=== PATIENT | female | born 1965 | race Caucasian/White ===

== ENCOUNTER 2017-12-07 02:17 | Inpatient (IN) | payer OTHER ==
--- NOTE | 2017-12-06 10:25 | History & Physical Pre-Op ---
General Information and HPI History of Present Illness: Patient seeks second opinion regarding repair of her hiatal hernia. Workup performed in [place], imaging and endoscopy notes reviewed. She describes at least 10 year history of GERD controlled with once daily PPI. Over past 4-6 months she c/o worsening postprandial epigastric abdominal and chest pain associated with nausea and vomiting undigested food. This occurs 3-4x/week. Upper GI series shows paraesophageal hernia with partial volvulus. EGD showed the same with inability to traverse the stomach due to partial outlet obstruction. 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 She reports anxiety but reports no depression, no sleep disturbances, feeling safe in relationship, no alcohol abuse, no homicidal thoughts, and no suicidal thoughts. She reports no fatigue, no fever, no night sweats, no significant weight gain, no significant weight loss, and no exercise intolerance. She reports no abnormal moles, no jaundice, no hives, no eczema, and no rashes. She reports no swollen glands and no neck stiffness. She reports no cough, no wheezing, no shortness of breath, and no coughing up blood. She reports no chest pain, no arm pain on exertion, no shortness of breath when walking, no shortness of breath when lying down, no palpitations, and no leg swelling. She reports no incontinence, no difficulty urinating, no hematuria, and no increased frequency. She reports no muscle aches, no muscle weakness, no arthralgias/joint pain, and no back pain. Exam & Diagnostic Data Physical Exam: Patient is a 52-year-old female. Constitutional: General Appearance: healthy-appearing, well-nourished, and well- developed. Level of Distress: no acute distress. Ambulation: ambulating normally. Head: Head: normocephalic and atraumatic. Neck: Neck: supple, trachea midline, no masses, and full range of motion. Thyroid: no enlargement or nodules and non-tender. Lymph Nodes: no cervical LAD, supraclavicular LAD, axillary LAD, or inguinal LAD. Cardiovascular: Heart Auscultation: normal S1 and S2; no murmurs, rubs, or gallops; and regular rate and rhythm. Lungs: Respiratory effort: no dyspnea. Percussion: no dullness, flatness, or hyperresonance. Auscultation: no wheezing, rales/crackles, or rhonchi and breath sounds normal, good air movement, and clear to auscultation. Back: Thoracolumbar Appearance: normal curvature. Abdomen: Inspection and Palpation: no tenderness, guarding, masses, rebound tenderness, or CVA tenderness and soft and non-distended. Bowel Sounds: normal. Liver: non-tender and no hepatomegaly. Spleen: non-tender and no splenomegaly. Hernia: none palpable. Skin: Inspection and palpation: no rash, lesions, ulcer, induration, nodules, jaundice, or abnormal nevi and good turgor. Musculoskeletal:: Extremities: no cyanosis, edema, varicosities, or palpable cord. Motor Strength and Tone: normal tone and motor strength. Joints, Bones, and Muscles: no contractures, malalignment, tenderness, or bony abnormalities and normal movement of all extremities. Psychiatric: Insight: good judgement and insight. Mental Status: normal mood and affect and active and alert. Orientation: to time, place, and person. Memory: recent memory normal and remote memory normal. Assessment/Plan Assessment/Plan: 1. Hiatal hernia with obstruction but no gangrene - Her symptoms are concerning for impending volvulus. Currently symptom-free. Recommend laparoscopic hiatal hernia repair with mesh and Hao fundoplication. Eat small meals until surgery. K44.0: Diaphragmatic hernia with obstruction, without gangrene Discussion Notes Discussed compications of surgery including but not limited to bleeding, infection, bowel injury, pneumothorax, dysphagia and bloating. Discussed the postoperative diet plan and a copy was given to the patient for review. As Ranked By This Provider Problem List: 1. Hiatal hernia
[~2017-12-07] VITALS: Ht 160.8 cm; Wt 88.0 kg
[~2017-12-07 02:17] MED LIST: BACLOFEN10 M1 PO; ESCITALOPRAM OX10 MG PO; IBUPROFEN600 M1 PO; OMEPRAZOLE40 M1 PO
--- NOTE | 2017-12-07 17:11 | Operative Report ---
Operative/Inv Procedure Report Surgery Date: 12/07/17 Name of Procedure: Laparoscopic hiatal hernia repair with mesh and Hao fundoplication Pre-Operative Diagnosis: Hiatal hernia GERD Post-Operative Diagnosis: Same Estimated Blood Loss: scant Surgeon/Spearer: Joe CLEMENS,Manish Dasilva/Jewell NUNES Anesthesia: general endotracheal tube Implants: Chaffee bio a mesh Specimens: Hernia sac Operative Indication: See preoperative H&P Operative/Procedure Note Note: After consent patient is brought to the operating room and laid supine. Gen. anesthesia was obtained and placed in lithotomy position. The abdomen was prepped and draped. The skin in the epigastric region was after local anesthesia and a transverse incision made sharply. We dissected down to the fascia and incised it with Fatoumata's. Stay suture placed and a blunt Smith port placed. Pneumoperitoneum was achieved. Therefore, 5 mm ports were placed in the right upper quadrant and epigastrium and left upper quadrant after local anesthesia instilled and under direct vision and camera. Patient is placed in reverse Trendelenburg. Through the right upper quadrant port site wound, and John retractor was placed and liver edge elevated. Began on the upper right crura and incised the peritoneum with the Sonicision device. We got into a plane around the sac in the mediastinum and carried or dissection up towards the apex and onto the left christiane. We then carried the dissection down to the right christiane and circumferentially encompassed the hiatus. The sac was then circumferentially mobilized out of the mediastinum with blunt and Sonicision dissection. An umbilical tie was placed around the hiatus and tied to itself to aid in retraction. The esophagus was then circumferentially mobilized through the mediastinum until 3-4 cm intra-abdominal esophagus could be obtained. The hernia sac was dissected and removed from the GE junction for better identification of it. The short gastric vessels were then divided with Sonicision to mobilize the fundus. The crural defect was then closed with a combination of interrupted 0 Ethibond sutures. The fundus was then placed posterior and wrapped around anterior. A shoeshine maneuver was performed. 2-0 Vicryl suture was placed on both sides the fundus to keep the plication in place anteriorly.. Second and third suture was placed inferiorly, incorporating the anterior portion esophagus. Finally, Chaffee bio a mesh was placed over the closed crura. Umbilical tape was then removed and passed off the field. The liver edge left full down the John retractor removed. Ports were delivered and passed off the field. The fascia was closed 0 Vicryl suture skin closed with 4- 0 Vicryl. Sterile dressings were applied. Findings: Complete intrathoracic stomach CC: Aleah CLEMENS,Cirilo Alejandre
--- NOTE | 2017-12-07 17:24 | Admission Core Measures ---
Acute Coronary Syndrome (CM) ACS Core Measures Acute Coronary Syndrome Diagnosis No Congestive Heart Failure (NEW) CHF Core Measures Congestive Heart Failure Diagnosis No Cerebrovascular Accident (NEW) CVA Core Measures CVA/TIA Diagnosis No Venous Thromboembolism VTE Core Que (View Protocol) VTE Risk Factors Surgery No Mechanical VTE Prophylaxis d/t N/A MechProphylax Ordered No VTE Pharm Prophylaxis d/t NA PharmProphylax ordered Problem List As ranked by this Provider includes Assessment & Plan 1. Status post Hao fundoplication HOME MEDS Home Med List Escitalopram Oxalate 10 MG TABLET 1 TAB PO DAILY DEPRESSION (Reported) Discontinued Medications Baclofen 10 MG TABLET 1 TAB PO TIDPRN PRN muscle spasm/strain Discontinued reason: Med no longer needed Ibuprofen 600 MG TABLET 1 TAB PO Q6PRN PRN pain Discontinued reason: Med no longer needed Omeprazole 40 MG CAPSULE. 1 CAP PO DAILY GERD (Reported) Discontinued reason: Med no longer needed
[2017-12-07 19:00] VITALS: BP 110/60
[2017-12-07 20:52] VITALS: BP 124/78
[2017-12-07 22:47] VITALS: BP 150/90
[2017-12-08 01:20] VITALS: BP 104/56
[2017-12-08 05:00] VITALS: BP 124/76
--- NOTE | 2017-12-08 08:19 | PN- General Surgery ---
See Addendum Subjective Subjective: Awake, alert Nauseated - has taken zofran and is dry heaving Tolerating liquids overnight but nausea with movement Has not passed flatus Objective Vital Signs and I&Os Vital Signs Date Time Temp Pulse Resp B/P B/P Pulse O2 O2 Flow FiO2 Mean Ox Delivery Rate 12/08 0500 97.9 73 18 124/76 93 Room Air 12/08 0120 98.1 77 18 104/56 92 CPAP 12/08 0000 90 CPAP 12/077 97.7 75 20 150/90 90 CPAP 12/07 2051 98.0 79 20 124/78 92 Nasal 3.0L Cannula 12/07 191 Nasal 3.0L Cannula 12/07 1899 97.5 74 16 110/60 93 Nasal 3.0L Cannula Intake & Output 12/08 1600 12/08 0800 12/08 0000 12/07 1600 12/07 0800 12/07 0000 Intake Total 830 450 Output Total 700 Balance 130 450 Intake, IV 800 400 Intake, Oral 30 50 Number 0 Bowel Movements Output, Urine 700 Patient 194 lb Weight Weight Reported by Patient Measurement Method Physical Exam: afebrile, vss General: alert and oriented times three Chest: clear bilaterally, RRR Abd: softly distended, hypoactive bowel sounds Ext: warm, no edema Wds: dressed, dry Assessment/Plan Assessment/Plan 52yo female pod 1 s/p lap zaid nutrition consult today stage one fundo diet antinausea meds try IV tylenol for pain mgmt - pt not in much pain and narcotics may be increasing nausea ambulate continue IVF for now until po intake increases Core Measures Venous Thromboembolism VTE Risk Factors Surgery No Mechanical VTE Prophylaxis d/t N/A MechProphylax Ordered No VTE Pharm Prophylaxis d/t NA PharmProphylax ordered
--- NOTE | 2017-12-08 08:36 | Patient Discharge Instructions ---
Discharge Instructions General Discharge Information You were seen/treated for: Hiatal hernia You had these procedures: Lap zaid fundoplication, hernia repair with mesh Watch for these problems: temp>101, increased redness or drainage of wounds, increased abdominal pain or nausea No bath, but you may shower: Yes Other wound care: Keep incisions clean and dry, may shower but no bathing or soaking. Diet Recommended Diet: Zaid fundoplication Activity Activity Self Limited: Yes Pounds, do NOT lift more than: 10 Acute Coronary Syndrome Inclusion Criteria At DC or during hospital stay patient has or had the following: ACS DIAGNOSIS No Discharge Core Measures Meds if any: Prescribed or Continued at Discharge Meds if any: NOT Prescribed or Continued at Discharge Congestive Heart Failure Inclusion Criteria At DC or during hospital stay patient has or had the following: CHF DIAGNOSIS No Discharge Core Measures Meds if any: Prescribed or Continued at Discharge Meds if any: NOT Prescribed or Continued at Discharge Cerebrovascular accident Inclusion Criteria At DC or during hospital stay patient has or had the following: CVA/TIA Diagnosis No Discharge Core Measures Meds if any: Prescribed or Continued at Discharge Meds if any: NOT Prescribed or Continued at Discharge Venous thromboembolism Inclusion Criteria VTE Diagnosis No VTE Type NONE VTE Confirmed by (Test) NONE Discharge Core Measures - Per Current guidelines, there needs to be overlap - treatment for the first 5 days of Warfarin therapy. - If discharged on Warfarin prior to 5 days of - overlap therapy, the patient will need to be - assessed for post discharge needs including - *Post discharge parental anticoagulation - *Warfarin and/or parental anticoagulation education - *Follow up date to check INR post discharge At least 5 days overlap therapy as Inpatient No Meds if any: Prescribed or Continued at Discharge Note: Overlap Therapy is Warfarin and Anticoagulant Meds if any: NOT Prescribed or Continued at Discharge
[2017-12-08 09:26] VITALS: BP 120/70
[2017-12-08 09:28] LABS: ABSOLUTE BASOPHIL COUNT 0 /CUMM (0.0-0.2); ABSOLUTE EOSINOPHIL COUNT 0 /CUMM (0.0-0.7); ABSOLUTE GRANULOCYTE CT 11.2 /CUMM (1.4-6.5); ABSOLUTE MONOCYTE COUNT 0.7 /CUMM (0.10-0.60); BASOPHIL % 0.1 % (0.0-2.0); EOSINOPHIL % 0 % (0-5); HEMATOCRIT 35.3 % (37-47); MEAN CORPUSCULAR HGB 27.3 PG (27.0-31.0); MEAN CORPUSCULAR HGB CONC 32.5 G/DL (33.0-37.0); MEAN PLATELET VOLUME 9.1 FL (7.4-10.4); PLATELET COUNT 229 /CUMM (130-400); RBC DISTRIBUTION WIDTH 14.7 % (11.5-14.5); RED BLOOD CELL CT 4.21 /CUMM (4.20-5.40); WHITE BLOOD CELL COUNT 12.9 /CUMM (4.8-10.8)
[2017-12-08] MEDS ORDERED: PERCOCET 5-3251 EACH PO (13:59)
[2017-12-08 14:46] VITALS: BP 120/60
[2017-12-08] MEDS ORDERED: VICODIN 5-3001 EACH PO ×2 (17:17→19:16)
== END 2017-12-08 21:20 | DRG 328 ==
LOC: STS 02:17 → PACUH 17:07 → 2NA 17:07 → ENRESERV 17:33 → ENTRNSPT 18:43 → 2NA 19:03 → CMPTRNSPT 19:18 → 2NA 21:50 → ENTRNSPT 12-08 21:07 → EDTRNSPTSTS 12-08 21:13 → 2NA 12-08 21:20 → CMPTRNSPT 12-08 21:40
PROVIDERS: Physician Assistant Surgical
PROC: 0DV44ZZ Restriction of Esophagogastric Junction, Percutaneous Endoscopic Approach (ICD-10-PCS; principal; 2017-12-07)
PROC: 0BUT4JZ Supplement Diaphragm with Synthetic Substitute, Percutaneous Endoscopic Approach (ICD-10-PCS; 2017-12-07)
DX: K44.9 Diaphragmatic hernia without obstruction or gangrene (principal); G47.33 Obstructive sleep apnea (adult) (pediatric); K21.9 Gastro-esophageal reflux disease without esophagitis
CPT/HCPCS: 2NASP; 6030; 36415; 82436; 87086; C1781; C9399; G0378; J0131; J0690; J1630; J1644; J2405